=== PATIENT | female | born 1990 | race Two or more races ===

== ENCOUNTER 2019-09-12 08:54 | Emergency (ER) | payer MEDICAID ==
[~2019-09-12] VITALS: Ht 160 cm; Wt 124.7 kg
[2019-09-12 08:59] VITALS: BP 92/68
== END 2019-09-12 10:11 | disposition home or self-care (01) ==
LOC: ER 08:54
DX: S39.012A Strain of muscle, fascia and tendon of lower back, initial encounter (principal); J20.9 Acute bronchitis, unspecified; N76.0 Acute vaginitis; X50.0XXA Overexertion from strenuous movement or load, initial encounter; Y93.B9 Activity, other involving muscle strengthening exercises; Y92.89 Other specified places as the place of occurrence of the external cause; Y99.8 Other external cause status
CPT/HCPCS: 71046; 81002

== ENCOUNTER 2019-11-17 12:09 | Emergency (ER) | payer MEDICAID ==
[~2019-11-17] VITALS: Ht 157.5 cm; Wt 124.7 kg
[2019-11-17 13:16] VITALS: BP 133/81
== END 2019-11-17 14:19 | disposition left against medical advice (07) ==
LOC: ER 12:09
DX: R05 Cough (principal); Z53.21 Procedure and treatment not carried out due to patient leaving prior to being seen by health care provider

== ENCOUNTER 2019-11-29 07:00 | Emergency (ER) | payer MEDICAID ==
[~2019-11-29] VITALS: Ht 157.5 cm; Wt 122.5 kg
[2019-11-29 07:23] VITALS: BP 122/88
[2019-11-29] MEDS ORDERED: ACETAMINOPHEN/CODEINE#3 (300/30mg) TAB PO ONE (08:00)
== END 2019-11-29 09:03 | disposition home or self-care (01) ==
LOC: ER 07:00
DX: M79.661 Pain in right lower leg (principal)
CPT/HCPCS: 93971

== ENCOUNTER 2019-12-10 13:19 | Inpatient (IN) | payer MEDICAID ==
[~2019-12-10] VITALS: Ht 157.5 cm; Wt 122.5 kg
[2019-12-10] MEDS ORDERED: PANTOPRAZOLE 40 MG/10 ML VIAL INJ IV STA (13:35)
[2019-12-10] MEDS ORDERED: SODIUM CHLORIDE 0.9% 1,000 ML IVB ONE (13:35)
[2019-12-10 13:42] LABS: Urine WBC None Seen /hpf (0 - 5)
[2019-12-10] MEDS ORDERED: ONDANSETRON HCL 4 MG/2 ML VIAL IV ONE (13:45)
[2019-12-10 14:00] LABS: Urine Bacteria NONE SEEN /hpf (None Seen); Urine Blood Negative /uL (Negative); Urine Mucus FEW (None Seen); Urine Specific Gravity 1.014 (1.001-1.035)
[2019-12-10 14:13] VITALS: BP 112/59
[2019-12-10 14:16] LABS: Basophils # (auto) 0.1 10 ^3/uL (0-0.2); Basophils % (auto) 0.6 % (0.0-2.0); Eosinophils # (auto) 0.1 10 ^3/uL (0-0.8); Eosinophils % (auto) 1.1 % (0.0-7.0); Hematocrit 43.7 % (36.0-46.0); Hemoglobin 15.2 g/dL (12.2-16.2); Lymphocytes # (auto) 1.7 10 ^3/uL (0.4-5.4); Lymphocytes % (auto) 18.7 % (10.0-50.0); Mean Corpuscular Hemoglobin 29.6 pg (28.0-32.0); Mean Corpuscular Hgb Conc. 34.7 g/dL (32.0-36.0); Mean Corpuscular Volume 85.3 fL (80.0-100.0); Monocytes # (auto) 0.6 10 ^3/uL (0-1.3); Monocytes % (auto) 6.3 % (0.0-12.0); Neutrophils # (auto) 6.6 10 ^3/uL (1.6-8.6); Neutrophils % (auto) 73.3 % (37.0-80.0); Nucleated Red Blood Cells % 0.2 %; Platelet Count (auto) 298 10^3/uL (140-450); Red Blood Cells 5.13 10^6/uL (4.0-5.20); Red Cell Distribution Width 13.5 % (11.8-14.3)
[2019-12-10 14:39] LABS: Albumin 3.4 g/dL (3.4-5.0); Calcium 8.5 mg/dL (8.5-10.1); Potassium 3.7 mmol/L (3.5-5.1)
[2019-12-10 14:42] LABS: BUN/Creatinine Ratio 11.3; Bilirubin, Total 0.3 mg/dL (0.2-1.0); Total Protein 7.7 g/dL (6.4-8.2)
[2019-12-10] MEDS ORDERED: MORPHINE SULF INJ 2 MG/ML SYRINGE 1ML IV PRN (16:00)
[2019-12-10] MEDS ORDERED: SODIUM CHLORIDE 0.9% 1,000 ML IV SCH (16:00)
[2019-12-10] MEDS ORDERED: HYDROcodone-ACET 5/325MG TAB PO PRN (16:00)
[2019-12-10] MEDS ORDERED: ONDANSETRON HCL 4 MG/2 ML VIAL IV PRN (16:00)
[2019-12-10 17:50] LABS: INR 0.97 (0.9-1.15)
[2019-12-10] MEDS ORDERED: ONDA-144 PO (18:05)
[2019-12-10] MEDS ORDERED: ACET1CAP14 PO (18:05)
[2019-12-10] MEDS ORDERED: HYDR-4833 PO (18:08)
== END 2019-12-11 18:20 | disposition home or self-care (01) ==
LOC: ER 13:21 → TELE 13:22
PROVIDERS: ADMIT Internal Medicine; ATTEND Internal Medicine
DX: K80.20 Calculus of gallbladder without cholecystitis without obstruction (principal); F17.210 Nicotine dependence, cigarettes, uncomplicated; Z83.3 Family history of diabetes mellitus; Z79.899 Other long term (current) drug therapy
CPT/HCPCS: 36415; 76705; 80053; 81001; 81025; 83690; 85025; 85610; 96361; 96374; 96375; C9113; G0378; J2405

== ENCOUNTER 2020-03-22 07:23 | Emergency (ER) | payer MEDICAID ==
[~2020-03-22] VITALS: Ht 157.5 cm; Wt 73.9 kg
[~2020-03-22 07:23] MED LIST: ACET1CAP14 PO; HYDR-4833 PO; ONDA-144 PO
[2020-03-22 08:11] LABS: Urine Bacteria FEW /hpf (None Seen); Urine Blood Negative /uL (Negative); Urine Specific Gravity 1.007 (1.001-1.035); Urine WBC <1 /hpf (0 - 5)
[2020-03-22 09:02] LABS: Basophils # (auto) 0 10 ^3/uL (0-0.2); Basophils % (auto) 0.3 % (0.0-2.0); Eosinophils # (auto) 0.1 10 ^3/uL (0-0.8); Eosinophils % (auto) 1.3 % (0.0-7.0); Hematocrit 45.7 % (36.0-46.0); Hemoglobin 15.5 g/dL (12.2-16.2); Lymphocytes # (auto) 2.2 10 ^3/uL (0.4-5.4); Lymphocytes % (auto) 23.3 % (10.0-50.0); Mean Corpuscular Volume 85.4 fL (80.0-100.0); Monocytes # (auto) 0.6 10 ^3/uL (0-1.3); Monocytes % (auto) 5.9 % (0.0-12.0); Neutrophils # (auto) 6.7 10 ^3/uL (1.6-8.6); Neutrophils % (auto) 69.2 % (37.0-80.0); Nucleated Red Blood Cells % 0.1 %; Platelet Count (auto) 271 10^3/uL (140-450); Red Blood Cells 5.35 10^6/uL (4.0-5.20); Red Cell Distribution Width 13.1 % (11.8-14.3); White Blood Cell 9.6 10^3/uL (4.4-10.8)
[2020-03-22 09:30] LABS: Albumin 3.5 g/dL (3.4-5.0); Calcium 8.5 mg/dL (8.5-10.1); Potassium 3.8 mmol/L (3.5-5.1)
[2020-03-22 09:33] LABS: BUN/Creatinine Ratio 17.4; Bilirubin, Total 0.3 mg/dL (0.2-1.0); Total Protein 7.8 g/dL (6.4-8.2)
[2020-03-22 12:17] VITALS: BP 136/83
== END 2020-03-22 12:18 | disposition home or self-care (01) ==
LOC: ER 07:23
DX: R10.32 Left lower quadrant pain (principal); F12.10 Cannabis abuse, uncomplicated; R91.1 Solitary pulmonary nodule
CPT/HCPCS: 36415; 74176; 80053; 81001; 81025; 82150; 83690; 85025

== ENCOUNTER 2021-03-26 22:52 | Emergency (ER) | payer MEDICAID ==
[~2021-03-26] VITALS: Ht 157.5 cm; Wt 95.3 kg
[2021-03-26] MEDS ORDERED: diphenhdrAMINE HCL 25 MG CAP PO ONE (23:15)
[2021-03-27] MEDS ORDERED: methylPREDNISolone SOD SUCC 125 MG/2 ML VL IM ONE (04:15)
[2021-03-27] MEDS ORDERED: cefTRIAXone SOD 1,000 MG VL IM ONE (04:15)
[2021-03-27] MEDS ORDERED: KETOROLAC TROMETH 60MG/2ML VIAL IM ONE (04:15)
[2021-03-27] MEDS ORDERED: LIDOCAINE VISCOUS 2% 15ML UD PO ONE (04:15)
[2021-03-27 04:56] VITALS: BP 102/66
== END 2021-03-27 04:55 | disposition home or self-care (01) ==
LOC: ER 22:52
DX: J03.90 Acute tonsillitis, unspecified (principal); K11.20 Sialoadenitis, unspecified; R07.0 Pain in throat; R53.83 Other fatigue; E66.9 Obesity, unspecified; F17.210 Nicotine dependence, cigarettes, uncomplicated; Z68.38 Body mass index [BMI] 38.0-38.9, adult; Z79.899 Other long term (current) drug therapy; Z90.49 Acquired absence of other specified parts of digestive tract
CPT/HCPCS: 70490; 81025; 96372; 99284; J0696; J1885; J2930